=== PATIENT | female | born 1985 | race Hispanic/Latino ===

== ENCOUNTER 2025-02-04 14:52 | Emergency (ER) | payer BC ==
[~2025-02-04] VITALS: Ht 157.5 cm; Wt 72.6 kg
[~2025-02-04 14:52] MED LIST: AMOXICILLIN500 MG PO; ULTRAM 50MG50 MG PO
[2025-02-04 14:55] VITALS: PULSE 82; RESP 16; TEMP 99; O2SAT 100
[2025-02-04] MEDS ORDERED: DOXYCYCLINE HY100 MG PO (15:18)
== END 2025-02-04 15:30 | disposition home or self-care (01) ==
LOC: ER 14:56
DX: N61.1 Abscess of the breast and nipple (principal)
CPT/HCPCS: 99283